=== PATIENT | male | born 1955 | race Caucasian/White ===

== ENCOUNTER 2017-11-26 05:32 | Inpatient (IN) | END 2017-11-27 12:20 | disposition home or self-care (01) | DRG 470 ==

== ENCOUNTER 2017-12-12 08:45 | Emergency (ER) | END 2017-12-12 12:47 | disposition home or self-care (01) ==

== ENCOUNTER 2017-12-14 17:59 | Emergency (ER) | END 2017-12-14 21:15 | disposition home or self-care (01) ==

== ENCOUNTER 2017-12-17 07:26 | Day surgery (SDC) | END 2017-12-18 12:54 | disposition home or self-care (01) ==

== ENCOUNTER 2018-05-25 09:41 | Emergency (ER) | END 2018-05-25 13:45 | disposition home or self-care (01) ==